=== PATIENT | female | born 1985 | race Caucasian/White ===

== ENCOUNTER 2022-05-15 18:54 | Observation (INO) | payer OTHER ==
[~2022-05-15] VITALS: Ht 167.6 cm; Wt 78.5 kg
[2022-05-15 19:32] VITALS: BP 135/71
[2022-05-15] MEDS ORDERED: METHYLERGONOVINE 0.2 MG/ML AMP IM PRN ×2 (19:35→19:40)
[2022-05-15] MEDS ORDERED: CARBOPROST 250 MCG/ML AMP IM PRN ×2 (19:35→19:40)
[2022-05-15] MEDS ORDERED: LACTATED RINGERS 1,000 ML IV SCH ×2 (19:35→19:40)
[2022-05-15] MEDS ORDERED: FERR-212 PO (20:08)
[2022-05-15] MEDS ORDERED: PNV1TABL5 PO (20:08)
[2022-05-15 20:33] LABS: BASOPHILS % (AUTO) 0.1 % (0.0-2.0); EOSINOPHILS % (AUTO) 0.4 % (0.0-4.0); HEMATOCRIT 32.8 % (36-48); HEMOGLOBIN 11.2 g/dL (12.0-16.0); LYMPHOCYTES # (AUTO) 1.2 K/uL (2.5-16.5); LYMPHOCYTES % (AUTO) 11.1 % (20.5-51.1); MEAN CORPUSCULAR HEMOGLOBIN 30 pg (27-31); MEAN CORPUSCULAR HGB CONC 34 g/dL (33-37); MEAN CORPUSCULAR VOLUME 87.2 fL (80-94); MONOCYTES # (AUTO) 0.5 K/uL (0.8-1.0); MONOCYTES % (AUTO) 4.5 % (1.7-9.3); NEUTROPHILS # (AUTO) 8.8 K/uL (1.8-7.7); NEUTROPHILS % (AUTO) 83.9 % (42.2-75.2); PLATELET COUNT (AUTO) 199 K/uL (140-450); RED BLOOD CELL COUNT(AUTO) 3.76 MIL/uL (4.20-5.40); RED CELL DISTRIBUTION WIDTH 15.7 % (11.6-13.7); WHITE BLOOD COUNT (AUTO) 10.5 K/uL (4.8-10.8)
[2022-05-15 20:46] LABS: ALBUMIN 2.8 g/dL (3.4-5.0); ANION GAP 12.7 (8-16); CARBON DIOXIDE 22.8 mmol/L (21-32); CREATININE 0.5 mg/dL (0.6-1.3); POTASSIUM 3.5 mmol/L (3.5-5.1); TOTAL BILIRUBIN 0.3 mg/dL (0.0-1.0)
[2022-05-15 21:09] LABS: APPEARANCE,URINE CLEAR (CLEAR); BILIRUBIN,URINE NEGATIVE (NEGATIVE); BLOOD, URINE 3+ (NEGATIVE); LEUKOCYTE ESTERASE ,URINE NEGATIVE (NEGATIVE); NITRITE, URINE NEGATIVE (NEGATIVE); PH,URINE 5.5 (5.0-9.0); UGLUCOSE NEGATIVE (NEGATIVE)
[2022-05-15 21:25] LABS: COLOR,URINE BLOODY (YELLOW)
[2022-05-15 22:07] LABS: BARBITURATE, URINE NEGATIVE ng/ml (NEG <=200); BENZODIAZEPINE, URINE NEGATIVE ng/mL (NEG <=200); CANNABINOID, URINE NEGATIVE ng/mL (NEG <=50); COCAINE, URINE NEGATIVE ng/mL (NEG <=300); OPIATE, URINE NEGATIVE ng/mL (NEG <=2000); PHENCYCLIDINE SCREEN,URINE NEGATIVE ng/mL (NEG <=25)
[2022-05-15 22:10] LABS: RBC,URINE 20-50 /HPF (0-5)
[2022-05-15 22:11] LABS: WBC,URINE 0-5 /HPF (0-5)
[2022-05-16 03:13] LABS: PROTHROMBIN TIME 9.2 secs (10.8-13.4)
[2022-05-17 08:08] LABS: HEPATITIS B SURFACE ANTIGEN Negative (Negative)
== END 2022-05-15 19:50 | disposition home or self-care (01) ==
LOC: MLD 18:54
PROVIDERS: ADMIT Obstetrics & Gynecology; ATTEND Obstetrics & Gynecology
DX: O46.93 Antepartum hemorrhage, unspecified, third trimester (principal); Z3A.40 40 weeks gestation of pregnancy
CPT/HCPCS: 36415; 59025; 76815; 80053; 80305; 81001; 85025; 85384; 85610; 85730; 86592; 86703; 86762; 86886; 86900; 86901; 87086; 87340; 87426; G0378; G0379; Q0092; J7120